=== PATIENT | female | born 1940 | race Asian ===

== ENCOUNTER 2017-09-12 22:45 | Inpatient (IN) | payer OTHER ==
[~2017-09-12] VITALS: Ht 157.5 cm; Wt 61.3 kg
[2017-09-12] MEDS ORDERED: SODIUM CHLORIDE 0.9% 1,000 ML IV ONE (23:19)
[2017-09-12] MEDS ORDERED: PANTOPRAZOLE SODIUM 40 MG/VIAL IV STA (23:19)
[2017-09-12] MEDS ORDERED: OCTREOTIDE ACETATE 50 MCG/ML 1ML IV STA (23:19)
[2017-09-13 00:31] LABS: CLARITY URINE CLEAR (CLEAR); COLOR URINE YELLOW (YELLOW); KETONES URINE NEGATIVE (NEGATIVE); LEUKOCYTE ESTERASE URINE TRACE (NEGATIVE); NITRITE URINE NEGATIVE (NEGATIVE); OCCULT BLOOD URINE NEGATIVE (NEGATIVE); PH URINE 6.5 (4.5-8.0); PROTEIN URINE NEGATIVE (NEGATIVE); UROBILINOGEN URINE 0.2 E.U./dL (0.2-1.0)
[2017-09-13 00:32] LABS: *AMPHETAMINES SCREEN URINE NEGATIVE (NEGATIVE); *BARBITURATES SCREEN URINE NEGATIVE (NEGATIVE); *BENZODIAZEPINES SCREEN URINE NEGATIVE (NEGATIVE)
[2017-09-13 00:33] LABS: *COCAINE SCREEN URINE NEGATIVE (NEGATIVE); CANNABINOID URINE SCREEN NEGATIVE (NEGATIVE); METHADONE URINE SCREEN NEGATIVE (NEGATIVE); OPIATES URINE SCREEN NEGATIVE (NEGATIVE)
[2017-09-13 00:34] LABS: PHENCYCLIDINE URINE SCREEN NEGATIVE (NEGATIVE)
[2017-09-13 01:06] LABS: BASOPHILS % 0.7 % (0.0-2.0); EOSINOPHILS % 0.2 % (0.0-5.0); HEMATOCRIT. 29.6 % (36.0-48.0); HEMOGLOBIN. 10.1 g/dL (12.0-16.0); MEAN CORPUSCULAR HEMOGLOBIN 33.2 pg (28.0-32.0); MEAN CORPUSCULAR VOLUME 97.8 fL (81.0-99.0); MEAN PLATELET VOLUME 8.6 fl (7.4-10.4); MONOCYTES % 5.4 % (2.0-8.0); NEUTROPHILS % 82.7 % (40.0-76.0); PLATELET 235 x1000/uL (130-400); RED BLOOD CELL COUNT 3.03 mill/uL (4.2-5.4); RED CELL DISTRIBUTION WIDTH 14.7 % (11.6-14.6)
[2017-09-13 01:09] LABS: CHLORIDE 105 mEq/L (98-107)
[2017-09-13 01:12] LABS: PROTHROMBIN TIME 10.7 sec (9.4-11.6)
[2017-09-13 01:13] LABS: ETHANOL BLOOD < 10 mg/dL
[2017-09-13 01:16] LABS: AMMONIA 19 uMol/L (<32)
[2017-09-13] MEDS ORDERED: CEFTRIAXONE 1 G PREMIX 50 ML IV NR (02:00)
[2017-09-13 04:12] LABS: HEMOGLOBIN 8.8 g/dL (12.0-16.0); MEAN CORPUSCULAR HEMOGLOBIN 33.3 pg (28.0-32.0); MEAN CORPUSCULAR VOLUME 98.6 fL (81.0-99.0); PLATELET 215 x1000/uL (130-400); RED BLOOD CELL COUNT 2.64 mill/uL (4.2-5.4); RED CELL DISTRIBUTION WIDTH 14.6 % (11.6-14.6)
[2017-09-13 05:15] VITALS: BP 141/95
[2017-09-13 05:30] VITALS: BP 141/95
[2017-09-13] MEDS ORDERED: ASPI-1159 PO (05:40)
[2017-09-13] MEDS ORDERED: OMEP20TA15 PO (05:40)
[2017-09-13] MEDS ORDERED: LIP40 PO (05:40)
[2017-09-13] MEDS ORDERED: LEVO50TA PO (05:40)
[2017-09-13] MEDS ORDERED: ATEN-42 PO (05:40)
[2017-09-13] MEDS ORDERED: AMLO5TAB4 PO (05:40)
[2017-09-13] MEDS ORDERED: IBUP-2030 PO (05:40)
[2017-09-13] MEDS ORDERED: FLUO10CA25 PO (05:40)
[2017-09-13] MEDS ORDERED: [UNRECOGNIZED DRUG - OTHER] PO (05:44)
[2017-09-13] MEDS ORDERED: ACETAMINOPHEN 325MG TABLET PO PRN (06:00)
[2017-09-13] MEDS ORDERED: CLONIDINE 0.1MG TABLET PO PRN (06:00)
[2017-09-13] MEDS ORDERED: DEXT 5%/0.45% NACL 1000ML 1,000 ML IV SCH (07:00)
[2017-09-13] MEDS ORDERED: LEVOTHYROXINE SODIUM 50MCG TABLET PO SCH (07:10)
[2017-09-13 08:00] VITALS: BP_SYST 112; BP_SYST 129; BP_DIAS 54; BP_DIAS 69
[2017-09-13] MEDS ORDERED: ATENOLOL 50 MG TABLET PO SCH (09:00)
[2017-09-13] MEDS ORDERED: FLUOXETINE HCL 10 MG CAPSULE PO SCH (09:00)
[2017-09-13] MEDS ORDERED: FAMOTIDINE 20MG/2ML VIAL IV SCH (09:00)
[2017-09-13] MEDS ORDERED: AMLODIPINE 5MG TABLET PO SCH (09:00)
[2017-09-13] MEDS ORDERED: CALCIUM CARBONATE/VITAMIN D3 500MG TABLET PO SCH (09:00)
[2017-09-13 09:30] LABS: BASOPHILS % 1.2 % (0.0-2.0); EOSINOPHILS % 2.6 % (0.0-5.0); HEMATOCRIT. 26.8 % (36.0-48.0); HEMOGLOBIN. 9.1 g/dL (12.0-16.0); LYMPHOCYTES % 23.7 % (20.0-50.0); MEAN CORPUSCULAR HEMOGLOBIN 33.4 pg (28.0-32.0); MEAN CORPUSCULAR VOLUME 98.1 fL (81.0-99.0); MEAN PLATELET VOLUME 9.2 fl (7.4-10.4); MONOCYTES % 10.5 % (2.0-8.0); PLATELET 209 x1000/uL (130-400); RED BLOOD CELL COUNT 2.73 mill/uL (4.2-5.4); RED CELL DISTRIBUTION WIDTH 14.4 % (11.6-14.6)
[2017-09-13 09:40] LABS: CHLORIDE 112 mEq/L (98-107)
[2017-09-13 09:55] LABS: LDL CHOLESTEROL 69 mg/dL (5-100)
[2017-09-13 09:56] LABS: TOTAL IRON BINDING CAPACITY 313 ug/dL (250-450)
[2017-09-13 10:00] LABS: HDL CHOLESTEROL 31 mg/dL (40-59)
[2017-09-13 12:00] VITALS: BP_SYST 112; BP_DIAS 49; BP_DIAS 70
[2017-09-13] MEDS ORDERED: ONDANSETRON HCL 4MG/2ML VIAL IV PRN (13:30)
[2017-09-13 15:17] VITALS: BP 112/70
[2017-09-13 15:50] VITALS: BP 113/51
[2017-09-13] MEDS ORDERED: ATORVASTATIN CALCIUM 40MG TABLET PO SCH (21:00)
[2017-09-13] MEDS ORDERED: PANTOPRAZOLE SODIUM 40 MG/VIAL IV SCH (21:00)
== END 2017-09-13 16:45 | disposition short-term general hospital (02) | DRG 378 ==
LOC: ER 22:59 → 8WST 09-13 03:55 → ENRESERV 09-13 04:10 → EDBEDREQSVC 09-13 04:18
PROVIDERS: ADMIT Internal Medicine Geriatric Medicine; ATTEND Internal Medicine Geriatric Medicine
DX: K92.2 Gastrointestinal hemorrhage, unspecified (principal); E44.1 Mild protein-calorie malnutrition; D64.9 Anemia, unspecified; I71.2 Thoracic aortic aneurysm, without rupture; E03.9 Hypothyroidism, unspecified; E78.00 Pure hypercholesterolemia, unspecified; F41.1 Generalized anxiety disorder; I10 Essential (primary) hypertension; K57.30 Diverticulosis of large intestine without perforation or abscess without bleeding; M19.90 Unspecified osteoarthritis, unspecified site; M81.0 Age-related osteoporosis without current pathological fracture; Z86.010 Personal history of colon polyps; Z90.49 Acquired absence of other specified parts of digestive tract; Z68.24 Body mass index [BMI] 24.0-24.9, adult
CPT/HCPCS: 36415; 71045; 74176; 80053; 80061; 80305; 81003; 82140; 82270; 83540; 83550; 83605; 83690; 83880; 84443; 84484; 85025; 85027; 85044; 85610; 86850; 86900; 97161; C9113; G0482; J0696; J2354; J3490; J7030